=== PATIENT | male | born 1990 ===

== ENCOUNTER 2016-06-07 14:10 | Inpatient (IN) | payer BC, OTHER ==
[~2016-06-07] VITALS: Ht 182.9 cm; Wt 72.6 kg
[2016-06-07 17:49] LABS: *AMPHETAMINE, URINE NEGATIVE (NEGATIVE); *BARBITURATE, URINE NEGATIVE (NEGATIVE); *CANNABINOID, URINE NEGATIVE (NEGATIVE); *COCCAINE, URINE NEGATIVE (NEGATIVE); *OPIATE, URINE NEGATIVE (NEGATIVE); *PHENCYCLIDINE SCREEN,URINE NEGATIVE (NEGATIVE)
[2016-06-07 17:50] VITALS: BP 118/72
--- NOTE | 2016-06-07 20:00 | NUR ---
Admission note Pt is a 26 yo male, A+Ox4, presenting to [facility] for Opiate dependence. Pt has NKA, is on Full Code status, and on Regular diet. Pt is 6'0" in height and 160 LBS. in weight. Pt denies any medical HX. Pt denies and family HX. Pt has no Primary Care Provider. Pt has been smoking Heroin for 3 years, has reached a level of 0.5gm/daily, and last dose was 0.5gm on 06-06-16. Pt is not taking any home medications. Pt has no HX of previous Detox/Rehab. Pt's last time sober is unknown. Pt has been a cigarette smoker for 7 years and has reached a level of 3-5/daily. Pt is stable at this time with no s/s of distress noted. V/S WNL. Respirations even and unlabored. Will continue to monitor. Will continue to monitor.
[2016-06-07 20:23] VITALS: BP 105/63
[2016-06-07] MEDS ORDERED: MAGNESIUM HYDROXIDE 30 ML LIQUID UDC PO PRN (21:45)
[2016-06-07] MEDS ORDERED: ONDANSETRON ODT 4 MG TAB.RAPDIS SL PRN (21:45)
[2016-06-07] MEDS ORDERED: MAG HYDROX/AL HYDROX/SIMETH 30 ML LIQUID UDC PO PRN (21:45)
[2016-06-07] MEDS ORDERED: LOPERAMIDE HCL 2 MG CAPSULE PO PRN ×2 (21:45)
[2016-06-07] MEDS ORDERED: diphenhydrAMINE 50 MG CAPSULE PO PRN (21:45)
[2016-06-07] MEDS ORDERED: DICYCLOMINE HCL 20 MG TABLET PO PRN (21:45)
[2016-06-07] MEDS ORDERED: BUPRENORPHINE HCL 2 MG TAB.SUBL SL PRN (21:45)
[2016-06-07] MEDS ORDERED: ACETAMINOPHEN 325 MG TABLET PO PRN (21:45)
[2016-06-07] MEDS ORDERED: METHOCARBAMOL 750 MG TABLET PO PRN (21:45)
[2016-06-07] MEDS ORDERED: HYDROXYZINE PAMOATE 25 MG CAPSULE PO PRN (21:45)
[2016-06-07] MEDS ORDERED: MIRALAX 17 GM POWD.PACK PO PRN (21:45)
[2016-06-07] MEDS ORDERED: CLONIDINE HCL 0.1 MG TABLET PO PRN (21:45)
[2016-06-07] MEDS ORDERED: IBUPROFEN 400 MG TABLET PO PRN (21:45)
[2016-06-07 23:06] LABS: ETHANOL < 3 MG/DL (0-0)
[2016-06-07 23:13] LABS: ALANINE AMINOTRANSFERASE 23 U/L (16-63); ALBUMIN 3.6 g/dL (3.4-5.0); ALKALINE PHOSPHATASE 50 U/L (50-136); ASPARTATE AMINOTRANSFERASE 21 U/L (15-37); BILIRUBIN,TOTAL 0.6 mg/dL (0.2-1.0); CALCIUM 8.6 mg/dL (8.5-10.1); CARBON DIOXIDE 32 mmol/L (21-32); CHLORIDE 107 mmol/L (98-107); CREATININE 0.7 mg/dL (0.6-1.3); GFR > 130 mL/min (>60); GLUCOSE 96 mg/dL (74-106); SODIUM SERUM 143 mmol/L (136-145); TOTAL PROTEIN, SERUM 6.4 g/dL (6.4-8.2); UREA NITROGEN, BLOOD 17 mg/dL (7-18)
[2016-06-07 23:22] LABS: BASOPHILS % (AUTO) 0.6 % (0.0-2.0); EOSINOPHILS # (AUTO) 0.1 K/uL (0.0-0.7); EOSINOPHILS % (AUTO) 2.4 % (0.0-7.0); HEMATOCRIT 36.8 % (36.7-47.1); HEMOGLOBIN 12.8 g/dL (12.5-16.3); LYMPHOCYTES # (AUTO) 2.1 K/uL (20.0-40.0); LYMPHOCYTES % (AUTO) 43.6 % (20.5-51.5); MEAN CORPUSCULAR HGB CONC 35 g/dL (32.5-36.3); MONOCYTES # (AUTO) 0.5 K/uL (2.0-10.0); NEUTROPHILS % (AUTO) 43.4 % (38.5-71.5); PLATELET COUNT (AUTO) 162 K/uL (152-348); RED BLOOD CELL COUNT(AUTO) 4.28 MIL/uL (4.06-5.63); RED CELL DISTRIBUTION WIDTH 12.6 % (12.1-16.2); WHITE BLOOD COUNT (AUTO) 4.7 K/uL (3.6-10.2)
[2016-06-07 23:23] LABS: THYROID STIMULATING HORMONE 0.667 mIU/mL (0.358-3.740)
[2016-06-07 23:29] LABS: HIV-1 p24 ANTIGEN NON REACTIVE (NONREACTIVE); HIV-1/2 ANTIBODY NON REACTIVE (NONREACTIVE)
[2016-06-08 00:18] VITALS: BP 105/50
[2016-06-08 04:16] VITALS: BP 112/61
[2016-06-08] MEDS ORDERED: ONDANSETRON ODT 4 MG TAB.RAPDIS ONE (04:36)
--- NOTE | 2016-06-08 07:09 | NUR ---
End of shift note Pt is a 26 yo male, A+Ox4, presenting to [facility] for Opiate dependence. Pt has NKA, is on Full Code status, and on Regular diet. Pt is 6'0" in height and 160 LBS. in weight. Pt denies any medical HX. Pt denies and family HX. Pt has no Primary Care Provider. Pt has been smoking Heroin for 3 years, has reached a level of 0.5gm/daily, and last dose was 0.5gm on 06-06-16. Pt is not taking any home medications. Pt has no HX of previous Detox/Rehab. Pt's last time sober is unknown. Pt has been a cigarette smoker for 7 years and has reached a level of 3-5/daily. Pt slept for a total of 9 HRS. Last COWS: 1 @0400. No s/s of distress noted at this time. Respirations even and unlabored. Will endorse to day shift nurse.
[2016-06-08 08:00] VITALS: BP 107/57
[2016-06-08] MEDS ORDERED: TUBERCULIN,PURIF.PROT.DERIV. 5 TU/0.1 ML TEST ID ONE (09:00)
--- NOTE | 2016-06-08 10:00 | NUR ---
START OF SHIFT Report received from shift commander nurse. Received patient laying in his bed. Pt is a 26 year old male admitted for medically supervised withdrawal from Opiates. Patient is full code with NKA, on fall precautions and regular diet. On assessment this AM: COWS: 1. Patient denies any complaints at this time. Patient denies SOB/chest pain/n/v/diarrhea/sweating/tremors/headache/any hallucinations. Patient reports he is tolerating meals without n/v. Patient encouraged patient to participate in group meetings. Patient able to verbalize needs and express thoughts and feelings. Med and treatment compliant. Patient goes [facility] with escort [facility] All needs met at this time. Call lights within reach and bed at low setting. Will continue to monitor patient.
[2016-06-08] MEDS: MULTIVITAMINS,THERAPEUTIC TABLET PO SCH (10:17)
[2016-06-08 12:00] VITALS: BP 99/66
--- NOTE | 2016-06-08 13:55 | NUR ---
PRN IBUPROFEN Patient complains of L ankle pain, 7/10, achy. PRN ibuprofen po given. Will continue to monitor patient.
--- NOTE | 2016-06-08 14:40 | NUR ---
REASSESSMENT PRN IBUPROFEN Patient reports pain on L ankle improved, it is now 3/10 from 08/15. Patient educated about his routine pain meds and encouraged to ask for his prn med if needed.
[2016-06-08] MEDS ORDERED: IBUPROFEN 400 MG TABLET PO PRN (15:30)
[2016-06-08 16:00] VITALS: BP 102/68
--- NOTE | 2016-06-08 19:01 | NUR ---
END OF SHIFT Pt is a 26 year old male admitted for medically supervised withdrawal from Opiates. Patient is full code with NKA, on fall precautions and regular diet. Patient denies SOB/chest pain/n/v/diarrhea/sweating/tremors/headache/any hallucinations. Most recent assessment: COWS: 0. Attending group activites, goes out for fresh air break with escort. Remains compliant with meds and treatment plans. No BM since admission. L ankle seen by MD, pending L foot xray. Redressed wound as patient took a shower. PRN ibuprofen given for L ankle pain. 08/15, effective, denies pain at this time. Tolerating diet well. All needs met. Patient did not verbalize any concern or questions at this time. hvac operations techniciancoding technician will continue to monitor patient. Addendum: 06/08/16 at 1921 by SANDY ROGERS RN Patient refused tuberculin skin test this AM, agreed to have chest x-ray instead. Xray done.
--- NOTE | 2016-06-08 19:11 | NUR ---
Start of shift note Received report from day shift nurse. Pt is a 26 yo male, A+Ox4, presenting to [facility] for Opiate dependence. Pt has NKA, is Full Code status, and on Regular diet. Pt is on Fall precautions. Pt is on PRN medications. No s/s of distress noted at this time. Respirations even and unlabored. Will continue to monitor.
[2016-06-08 20:22] VITALS: BP 111/73
[2016-06-08] MEDS: ACETAMINOPHEN ES 500 MG TABLET PO SCH (21:29)
[2016-06-09 00:12] VITALS: BP 104/58
[2016-06-09 04:33] VITALS: BP 122/74
--- NOTE | 2016-06-09 07:05 | NUR ---
End of shift note Pt is a 26 yo male, A+Ox4, presenting to [facility] for Opiate dependence. Pt has NKA, is Full Code status, and on Regular diet. Pt is on Fall precautions. Pt is on PRN medications. Pt slept for a total of 6 HRS. Last COWS: 1 @0400. No s/s of distress noted at this time. Respirations even and unlabored. Will endorse to day shift nurse.
[2016-06-09 08:00] VITALS: BP 126/76
[2016-06-09] MEDS: ACETAMINOPHEN ES 500 MG TABLET PO SCH ×5 (08:16→21:00)
[2016-06-09] MEDS: MULTIVITAMINS,THERAPEUTIC TABLET PO SCH (08:16)
--- NOTE | 2016-06-09 08:26 | NUR ---
START OF SHIFT Report received from manager shift nurse. Received patient laying in his bed. Pt is a 26 year old male admitted for medically supervised withdrawal from Opiates. Patient is full code with NKA, on fall precautions and regular diet. On assessment this AM: COWS: 0. Patients L foot wound covered with gauze and tape, c/d/i/, 04/15 pain, patient received his routine pain med. Patient denies SOB/chestain/n/v/diarrhea/sweating/tremors/headache/ any hallucinations. Tolerating meals without n/v. Patient encouraged patient to participate in group meetings. No concerns or needs verbalized at this time. Med and treatment compliant. All needs met at this time. Call lights within reach and bed at low setting. Will continue to monitor patient.
[2016-06-09 12:00] VITALS: BP 109/72
[2016-06-09 14:08] LABS: HEPATITIS B CORE AB, IgM Negative (Negative); HEPATITIS B SURFACE AG Negative (Negative)
[2016-06-09 15:33] LABS: *AMPHETAMINE, URINE NEGATIVE (NEGATIVE); *BARBITURATE, URINE NEGATIVE (NEGATIVE); *CANNABINOID, URINE NEGATIVE (NEGATIVE); *COCCAINE, URINE NEGATIVE (NEGATIVE); *OPIATE, URINE NEGATIVE (NEGATIVE); *PHENCYCLIDINE SCREEN,URINE NEGATIVE (NEGATIVE)
[2016-06-09 16:00] VITALS: BP 107/59
--- NOTE | 2016-06-09 19:10 | NUR ---
END OF SHIFT Pt is a 26 year old male admitted for medically supervised withdrawal from Opiates. Patient is full code with NKA, on fall precautions and regular diet. Patient denies SOB/chest pain/n/v/diarrhea/sweating/tremors/headache/any hallucinations. Most recent assessment: COWS: 0. Refused routine Tylenol, pain is 0/10 at this time. BM X1. Pending discharge tomorrow. Photo taken on L wound ankle and placed in chart. Tolerating diet well. All needs met. Patient did not verbalize any concern or questions at this time. severity of illness coordinatorshift commander will continue to monitor patient.
--- NOTE | 2016-06-09 19:11 | NUR ---
Start of shift note Received report from day shift nurse. Pt is a 26 yo male, A+Ox4, presenting to [facility] for Opiate dependence. Pt has NKA, is Full Code status, and on Regular diet. Pt is on Fall precautions. Pt is on PRN medications. Pt is due for discharge tomorrow. No s/s of distress noted at this time. Respirations even and unlabored. Will continue to monitor.
[2016-06-09 20:15] VITALS: BP 125/79
[2016-06-10 00:12] VITALS: BP 127/81
[2016-06-10 04:33] VITALS: BP 124/82
--- NOTE | 2016-06-10 07:16 | NUR ---
End of shift note Pt is a 26 yo male, A+Ox4, presenting to [facility] for Opiate dependence. Pt has NKA, is Full Code status, and on Regular diet. Pt is on Fall precautions. Pt is on PRN medications. Pt is due for discharge today. Pt slept for a total of 7 HRS. Last COWS: 1 @0400. No s/s of distress noted at this time. Respirations even and unlabored. Will endorse to day shift nurse.
--- NOTE | 2016-06-10 07:18 | NUR ---
Start Of Shift Received report from manager shift nurse. Pt is a 26 yo male, A+Ox4, presenting to [facility] for Opiate dependence. Pt denies any food or drug allergies, is Full Code status, and on Regular diet. Pt continues on Fall precautions. Pt is not on a taper but is on PRN medications in case of withdrawals. Pt is due for discharge today. Pt reported having a good night sleep, Pt slept a total of 7 hours last night his last COWS was a 1 taken at 0400. Pt did not receive any PRN medications last night. No s/s of distress noted at this time. Respirations even and unlabored at 18. All safety measures in place, call light within reach will continue to monitor and provide care.
[2016-06-10 08:00] VITALS: BP 113/61
[2016-06-10] MEDS: ACETAMINOPHEN ES 500 MG TABLET PO SCH (09:00)
[2016-06-10] MEDS: MULTIVITAMINS,THERAPEUTIC TABLET PO SCH (09:00)
--- NOTE | 2016-06-10 09:22 | NUR ---
DISCHARGE NOTE Pt is in stable condition. Vitals WNL, Pt alert and oriented x4, skin intact, Pt denies any SI/HI. All discharge paperwork completed dated and signed. Pt educated about discharge instructions, what to do after discharge when to contact MD as well as the s/s reportable to MD, pt verbalized understanding. Pt was provided with all of his discharge paperwork. Pt's last COWS:0 taken at 0800. Pt was discharged from [facility] on 06/10/16 at 0922. Pt left the building with all of his belongings. MD and psychiatrist have been contacted notified and aware of pt's d/c.
== END 2016-06-10 09:22 | disposition other institution (70) | DRG 895 ==
LOC: SRC 16:20
PROVIDERS: ADMIT Internal Medicine; ATTEND Internal Medicine
PROC: HZ2ZZZZ Detoxification Services for Substance Abuse Treatment (ICD-10-PCS; principal; 2016-06-07)
PROC: HZ41ZZZ Group Counseling for Substance Abuse Treatment, Behavioral (ICD-10-PCS; 2016-06-08)
DX: F11.23 Opioid dependence with withdrawal (principal); Z59.0 Homelessness; S96.912A Strain of unspecified muscle and tendon at ankle and foot level, left foot, initial encounter; X50.0XXA Overexertion from strenuous movement or load, initial encounter; Y93.02 Activity, running; Y92.89 Other specified places as the place of occurrence of the external cause; F17.210 Nicotine dependence, cigarettes, uncomplicated
CPT/HCPCS: 36415; 70030-TC; 71010; 73610; 80307; 83735; 84443; 85025; 86580; 86705; 87340; 87806; G6040-TC; Q0162